=== PATIENT | male | born 1975 | race Caucasian/White ===

== ENCOUNTER 2022-10-19 20:00 | Emergency (ER) | payer BC ==
[~2022-10-19] VITALS: Ht 170.1 cm; Wt 81.6 kg
[2022-10-19 20:10] VITALS: BP 134/60
[2022-10-20] MEDS ORDERED: TRAMADOL HCL50 MG PO (00:44)
== END 2022-10-20 01:21 | disposition home or self-care (01) ==
LOC: ED 20:00
DX: S92.102A Unspecified fracture of left talus, initial encounter for closed fracture (principal); Z91.040 Latex allergy status; Z90.49 Acquired absence of other specified parts of digestive tract; W11.XXXA Fall on and from ladder, initial encounter; Y93.89 Activity, other specified; Y92.89 Other specified places as the place of occurrence of the external cause; Y99.8 Other external cause status